=== PATIENT | female | born 1960 | race Caucasian/White ===

== ENCOUNTER 2018-04-21 13:31 | Outpatient (CLI) | payer OTHER | END 2018-04-21 13:32 | disposition home or self-care (01) | LOC: BICMAMMO 13:31 | PROVIDERS: ATTEND Family Medicine | DX: Z12.31 Encounter for screening mammogram for malignant neoplasm of breast (principal); Z78.0 Asymptomatic menopausal state; M85.89 Other specified disorders of bone density and structure, multiple sites; Z80.3 Family history of malignant neoplasm of breast | CPT/HCPCS: 77063; 77067; 77080 ==

== ENCOUNTER 2019-05-11 13:14 | Outpatient (CLI) | payer OTHER ==
--- NOTE | 2019-05-11 13:57 | BD ---
DEXA bone density examination HISTORY: 59-year-old postmenopausal female for screening COMPARISON: 04/21/2018. FINDINGS: L1--bone mineral density 0.793 g/sq cm; T score -1.8 L2--bone mineral density 0.8 g/sq cm; T score -2.1 L3--bone mineral density 0.777 g/sq cm; T score -2.8 L4--bone mineral density 0.776 g/sq cm; T score -2.6 Total L1-L4--bone mineral density 0.785 g/sq cm; T score -2.4 Left femoral neck--bone mineral density0.663; T score -1.7 Total proximal left femur--bone mineral density 0.89; T score -0.4 There is a mild decrease in the bone marrow density of the lumbar spine and left femoral neck when co mpared to the prior exam. IMPRESSION: 1. Moderate osteopenia of the lumbar spine. 2. Mild osteopenia of the left femoral neck. 3. The 10 year major osteoporotic fracture risk is 7.5% with 10 year hip fracture risk of 0.6%.
--- NOTE | 2019-05-11 14:35 | MMO ---
Bilateral MAMMO Bilat Screen [facility]. CLINICAL HISTORY: Patient is 59 years old and is seen for screening. The patient has the following family history of breast cancer: sister, at age 45. The patient has no personal history of cancer. VIEWS: The views performed were: bilateral craniocaudal with tomosynthesis and bilateral mediolateral oblique with tomosynthesis. FILMS COMPARED: The present examination has been compared to prior imaging studies performed at [facility] on 10/26/2014, 02/12/2016, 02/13/2017 and 04/21/2018. MAMMOGRAM FINDINGS: There are scattered fibroglandular densities. Finding 1: There are stable benign appearing calcifications seen in both breasts. Finding 2: There is a stable intramammary lymph node seen in the right breast. There are no suspicious masses, suspicious calcifications, or new areas of architectural distortion. IMPRESSION: THERE IS NO MAMMOGRAPHIC EVIDENCE OF MALIGNANCY. A ROUTINE FOLLOW-UP MAMMOGRAM IN 1 YEAR IS RECOMMENDED. THE RESULTS OF THIS EXAM WERE SENT TO THE PATIENT. ACR BI-RADS Category 2 - Benign finding MAMMOGRAPHY NOTE: 1. A negative mammogram report should not delay a biopsy if a dominant of clinically suspicious mass is present. 2. Approximately 10% to 15% of breast cancers are not detected by mammography. 3. Adenosis and dense breasts may obscure an underlying neoplasm. Reported by: EDWARDO GARCIA MD Electonically Signed: [id number]
== END 2019-05-11 13:15 | disposition home or self-care (01) ==
LOC: BICMAMMO 13:14
PROVIDERS: ATTEND Family Medicine
DX: Z12.31 Encounter for screening mammogram for malignant neoplasm of breast (principal); Z13.820 Encounter for screening for osteoporosis; Z80.3 Family history of malignant neoplasm of breast; M85.88 Other specified disorders of bone density and structure, other site
CPT/HCPCS: 77063; 77067; 77080

== ENCOUNTER 2020-07-17 15:28 | Outpatient (CLI) | payer OTHER ==
--- NOTE | 2020-07-17 16:01 | RAD ---
Portable chest: HISTORY: Cough COMPARISON: none FINDINGS: Lung das are clear. Heart and mediastinum appear unremarkable. Vascularity is normal. Visualized osseous structures unremarkable. IMPRESSION: No acute finding
== END 2020-07-17 15:29 | disposition home or self-care (01) ==
LOC: BICRAD 15:28
PROVIDERS: ATTEND Family Medicine
DX: R05 Cough (principal)
CPT/HCPCS: 71045

== ENCOUNTER 2021-10-23 14:22 | Outpatient (CLI) | payer BC | END 2021-10-23 14:23 | disposition home or self-care (01) | LOC: BICMAMMO 14:22 | PROVIDERS: ATTEND Family Medicine | DX: Z12.31 Encounter for screening mammogram for malignant neoplasm of breast (principal); M85.89 Other specified disorders of bone density and structure, multiple sites; Z80.3 Family history of malignant neoplasm of breast | CPT/HCPCS: 77063; 77067; 77080 ==

== ENCOUNTER 2022-10-31 12:12 | Outpatient (CLI) | payer BC | END 2022-10-31 12:13 | disposition home or self-care (01) | LOC: BICMAMMO 12:12 | PROVIDERS: ATTEND Family Medicine | DX: Z12.31 Encounter for screening mammogram for malignant neoplasm of breast (principal); Z80.3 Family history of malignant neoplasm of breast | CPT/HCPCS: 77063; 77067 ==

== ENCOUNTER 2023-11-13 12:59 | Outpatient (CLI) | payer BC | END 2023-11-13 13:00 | disposition home or self-care (01) | LOC: BICMAMMO 12:59 | PROVIDERS: ATTEND Family Medicine | DX: Z12.31 Encounter for screening mammogram for malignant neoplasm of breast (principal); Z80.3 Family history of malignant neoplasm of breast | CPT/HCPCS: 77063; 77067 ==